=== PATIENT | male | born 1995 | race Hispanic/Latino ===

== ENCOUNTER 2018-07-28 18:22 | Emergency (ER) | payer SELFPAY ==
[2018-07-28] MEDS ORDERED: Ondansetron PF 4 MG/2 ML Vial ONE (19:11)
== END 2018-07-28 21:00 | disposition home or self-care (01) ==
LOC: ERS 18:22
DX: F10.10 Alcohol abuse, uncomplicated (principal); R11.2 Nausea with vomiting, unspecified
CPT/HCPCS: 96361; 96374; J2405